=== PATIENT | female | born 1950 | race Caucasian/White ===

== ENCOUNTER 2021-01-02 02:50 | Emergency (ER) | payer MEDICARE, OTHER ==
[~2021-01-02] VITALS: Ht 157.5 cm; Wt 72.6 kg
[~2021-01-02 02:50] MED LIST: ARIP2TAB3 PO; ESOM40CA PO; HYDR-3470 PO; HYDR12.53 PO; HYDROCORTISONE ACETATE RC; LEVO88TA5 PO; LIOT50TA3 PO; LORA10TA3 PO; MILN50TA PO; PARO40TA3 PO; PREG75CA PO
[2021-01-02 03:06] VITALS: BP 168/81
[2021-01-02] MEDS ORDERED: ULTRAM PO STA (03:10)
--- NOTE | 2021-01-02 03:14 | NUR ---
XRAY CALLED CALLED [facility] FOR XRAY
[2021-01-02] MEDS ORDERED: ULTRAM ONE (03:16)
--- NOTE | 2021-01-02 03:38 | NUR ---
XRAY IN ROOM WITH PATIENT
--- NOTE | 2021-01-02 03:55 | ER.PDOC ---
General Chief Complaint: Extremities Stated Complaint: FALL/ELBOW INJURY Time seen by MD: 02:51 Source: patient Exam Limitations: no limitations History of Present Illness Initial Comments 70-year-old female presenting with left arm pain after falling out of bed. Patient explains she was going to the bathroom when she tripped and fell hitting her left arm on the ground while trying to catch her fall. No LOC, no other injuries, no numbness or tingling. Just has pain to the inside of the left upper extremity. Recent Injury: Yes Where: home Severity: mild Exacerbated By: movement of Relieved By: rest Quality: pain, swelling, tenderness Allergies: Coded Allergies: Sulfa (Sulfonamide Antibiotics) (Unverified Allergy, Unknown, 08/01/14) Home Meds Active Scripts [Hydrocortisone Acetate] 25 MG SUPP.RECT No Conflict Check, 25 MG RC BID, SUPP.RECT Prov:ARCHIE LU III DO 08/02/14 Reported Medications Hydrochlorothiazide (HYDROCHLOROTHIAZIDE) 12.5 Mg Capsule, 12.5 MG PO DAILY, CAPSULE 08/02/14 Hydrocodone Bit/Acetaminophen (NORCO 10-325 TABLET) 10-325 T1 Ea Tab, 1 EACH PO QID PRN for PAIN, TABLET 08/01/14 Loratadine (LORATADINE) 10 Mg Tablet, 10 MG PO DAILY, TABLET 08/01/14 Aripiprazole (ABILIFY) 2 Mg Tablet, 2 MG PO HS, TABLET 08/01/14 Milnacipran Hcl (SAVELLA) 50 Mg Tablet, 50 MG PO BID, TABLET 08/01/14 Pregabalin (LYRICA) 75 Mg Capsule, 75 MG PO QID, CAPSULE 08/01/14 Levothyroxine Sodium (LEVOTHYROXINE SODIUM) 88 Mcg Tablet, 88 MCG PO ACB, TABLET 08/01/14 Esomeprazole Magnesium (NEXIUM) 40 Mg Capsule.dr, 40 MG PO DAILY 08/01/14 Liothyronine Sodium (LIOTHYRONINE SODIUM) 50 Mcg Tablet, 125 MCG PO ACB, TABLET 08/01/14 Paroxetine Hcl (PAROXETINE HCL) 40 Mg Tablet, 40 MG PO DAILY, TABLET 08/01/14 Past Medical History Medical History: fibromyalgia, hypertension, thyroid disease Surgical History: hysterectomy Social History Alcohol Use: none Drug Use: none Review of Systems All Other Systems: Reviewed and Negative Physical Exam General Appearance: alert, no distress Upper Extremity: nml inspection, joints nml, tenderness (Tenderness to p alpation to the wrist joint as well as mild swelling. 2+ radial pulses bilaterally), swelling, limited ROM Skin: color nml, warm/dry Vascular: no vascular compromise Neuro/Psych: sensation nml, motor nml Central Exam: oriented X3, CN's nml as tested, nml speech, nml cognition, nml mood/affect EENT: eyes nml inspection, ENT nml inspection, pharynx nml Neck/Back: nml inspection Respiratory: no resp distress, breath sounds nml CVS: reg rate & rhythm, heart sounds nml Abdomen: non-tender, no organomegaly, nml bowels sounds Results/Orders Results/Orders Orders - EJESIEME,WING C DO Xr Wrist Lt (01/02/21 03:10) Xr Forearm Lt (01/02/21 03:10) Xr Elbow Lt (01/02/21 03:10) Tramadol Hcl (Ultram) (01/02/21 03:10) Tramadol Hcl (Ultram) (01/02/21 03:16) Vital Signs Date Time Temp Pulse Resp B/P (MAP) Pulse Ox O2 Delivery O2 Flow Rate FiO2 01/02/21 04:05 97.9 76 16 148/77 (100) 97 Room Air 01/02/21 03:06 97.9 78 16 96 01/02/21 03:06 97.9 78 16 168/81 (110) 96 Room Air 01/02/21 03:06 97.9 78 16 Administered Medications Medications (Trade) Dose Ordered Sig/Lorie Route PRN Reason Start Time Stop Time Status Last Admin Dose Admin Tramadol HCl (Ultram) 50 mg STAT STAT PO 01/02/21 03:10 01/02/21 03:13 DC 01/02/21 03:18 50 MG Progress Progress 70-year-old female presenting with left upper extremity pain after a fall. Pat ient was found to have forearm fracture. Will splint and discharged home follow-up with orthopedic surgery ER DEPART Departure Time of Disposition: 03:53 Disposition: 01 HOME / SELF CARE / HOMELESS Impression: Primary Impression: Forearm fracture Condition: Stable Patient Instructions: Forearm Fracture, [id number] Referrals: PCP,UNKNOWN (PCP) PRIMARY CARE PROVIDER SAMANTHA DANIELLE MD SPECIALIST follow up in 1 week Duration or Time Spent with Pa: 30 min WING BAR DO Jan 02, 2021 03:55
[2021-01-02 04:05] VITALS: BP 148/77
--- NOTE | 2021-01-02 04:16 | DIREP ---
PROCEDURE:XRAY WRIST MIN 3VW-LT COMPARISON:[facility], , XRAY FOREARM 2 VWS-LT, 01/02/2021, 03:34 AM. INDICATIONS:left arm pain FINDINGS: BONES:Overall bone mineralization is diminished. Acute mildly comminuted transverse fracture of the distal radial metaphysis with impaction and mild dorsal angulation of the distal fragment. Acute nondisplaced ulnar styloid fracture is also present. No additional fracture is seen. JOINTS:No dislocation. Advanced degenerative changes at the 1st CMC and triscaphe joints. SOFT TISSUES:Moderate soft tissue swelling about the wrist. OTHER:No additional findings. CONCLUSION: 1. Acute transverse fracture of the distal radial metaphysis with impaction and mild dorsal angulation of the distal fragment. 2. Acute nondisplaced ulnar styloid fracture. Dictated by: Rob Mtz M.D. On 01/02/2021 at 04:11 AM
--- NOTE | 2021-01-02 04:19 | DIREP ---
PROCEDURE:XRAY FOREARM 2 VWS-LT COMPARISON:[facility], , XRAY ELBOW 2VWS-LT, 01/02/2021, 03:34 AM. INDICATIONS:left arm pain FINDINGS: BONES:Overall bone mineralization is diminished. Acute mildly comminuted transverse fracture of the distal radial metaphysis with impaction and mild dorsal angulation of the distal fragment. Acute nondisplaced ulnar styloid fracture is also present. No additional fracture is seen. JOINTS:No dislocation. Advanced degenerative changes at the 1st CMC and triscaphe joints. SOFT TISSUES:Moderate soft tissue swelling about the wrist. OTHER:No additional findings. CONCLUSION: 1. Acute transverse fracture of the distal radial metaphysis with impaction and mild dorsal angulation of the distal fragment. 2. Acute nondisplaced ulnar styloid fracture. Dictated by: Rob Mtz M.D. on 01/02/2021 at 04:14 AM
--- NOTE | 2021-01-02 04:19 | DIREP ---
PROCEDURE:XRAY ELBOW 2VWS-LT COMPARISON:None. INDICATIONS:left arm pain FINDINGS: BONES:Normal. JOINTS:Normal. No displaced anterior or posterior fat pads. SOFT TISSUES:Normal. OTHER:Normal. CONCLUSION:No acute fracture or dislocation. Dictated by: Rob Mtz M.D. on 01/02/2021 at 04:17 AM
== END 2021-01-02 04:08 | disposition home or self-care (01) ==
LOC: ER 02:50
DX: S52.615A Nondisplaced fracture of left ulna styloid process, initial encounter for closed fracture (principal); I10 Essential (primary) hypertension; Z79.899 Other long term (current) drug therapy; Z88.2 Allergy status to sulfonamides; Z90.710 Acquired absence of both cervix and uterus; W06.XXXA Fall from bed, initial encounter; Y93.89 Activity, other specified; Y92.89 Other specified places as the place of occurrence of the external cause; Y99.8 Other external cause status
CPT/HCPCS: 29125; 99284; 73070-LT; 73090-LT; 73110-LT